=== PATIENT | female | born 1940 | race African-American/Black ===

== ENCOUNTER 2019-08-22 12:16 | Inpatient (IN) | payer OTHER ==
[~2019-08-22] VITALS: Ht 167.6 cm; Wt 74.8 kg
[2019-08-22] MEDS ORDERED: SODIUM CHLORIDE 0.9% 1,000 ML IV ONE (12:46)
[2019-08-22] MEDS ORDERED: LORAZEPAM 2MG/ML CPJ IV ONE (13:00)
[2019-08-22 13:24] LABS: BASOPHILS % 0.9 % (0.0-2.0); EOSINOPHILS % 1.6 % (0.0-5.0); HEMATOCRIT. 46.2 % (36.0-48.0); HEMOGLOBIN. 15.1 g/dL (12.0-16.0); LYMPHOCYTES % 14.9 % (20.0-50.0); MEAN CORPUSCULAR HEMOGLOBIN 28.5 pg (28.0-32.0); MEAN PLATELET VOLUME 10.4 fl (7.4-10.4); MONOCYTES % 12.4 % (2.0-8.0); NEUTROPHILS % 70.2 % (40.0-76.0); PLATELET 120 x1000/uL (130-400); RED BLOOD CELL COUNT 5.31 mill/uL (4.2-5.4); RED CELL DISTRIBUTION WIDTH 15.1 % (11.6-14.6)
[2019-08-22 13:31] LABS: CHLORIDE 100 mEq/L (98-107)
[2019-08-22 13:32] LABS: CLARITY URINE CLEAR (CLEAR); COLOR URINE YELLOW (YELLOW); KETONES URINE 4+ (NEGATIVE); LEUKOCYTE ESTERASE URINE NEGATIVE (NEGATIVE); NITRITE URINE NEGATIVE (NEGATIVE); OCCULT BLOOD URINE 1+ (NEGATIVE); PROTEIN URINE NEGATIVE (NEGATIVE); UROBILINOGEN URINE 0.2 E.U./dL (0.2-1.0)
[2019-08-22 13:34] LABS: INR 0.9; PARTIAL THROMBOPLASTIN TIME 23.6 sec (23.4-31.0); PROTHROMBIN TIME 10.1 sec (9.6-11.0)
[2019-08-22 13:40] LABS: BETA HYDROXYBUTYRATE 7.1 mMol/L (0.0-0.3)
[2019-08-22] MEDS ORDERED: SODIUM CHLORIDE 0.9% 1,000 ML IV STA (15:05)
[2019-08-22] MEDS ORDERED: KCL 20MEQ/100ML PREMIX 100 ML IV ONE (15:15)
[2019-08-22] MEDS ORDERED: INSULIN REGULAR (DRIP) 100 UNITS in SODIUM CHLORIDE 0.9% 100 ML IV ONE (16:00)
[2019-08-22 16:26] LABS: CHLORIDE 111 mEq/L (98-107)
[2019-08-22 16:30] LABS: BG BASE EXCESS -15.3 mmol/L (-2.0-2.0); BG CARBOXYHEMOGLOBIN 0.4 % (0.5-1.5); BG DEOXYHEMOGLOBIN 3.9 % (0.0-5.0); BG FRACTION INSPIRED OXYGEN 21; BG HCO3 ACT 9.5 mmol/L (22.0-26.0); BG METHEMOGLOBIN 0.2 % (0.0-1.5); BG OXYGEN SATURATION 96.1 % (92.0-98.5); BG OXYHEMOGLOBIN 95.5 % (94.0-97.0); BG PH 7.272 (7.350-7.450); BG PO2 90.9 mmHg (75.0-100.0); BG SAMPLE SITE RIGHT RADIAL; BG TOTAL HEMOGLOBIN 13.2 g/dL (12.0-18.0); BG VENT MODE ROOM AIR
[2019-08-22 16:32] LABS: PHOSPHORUS 2.9 mg/dL (2.5-4.9)
[2019-08-22] MEDS ORDERED: DEXT 5%/0.9% NACL KCL 20MEQ/L 1,000 ML IV SCH (18:15)
[2019-08-22] MEDS ORDERED: ONDANSETRON HCL 4MG/2ML INJ IV PRN (18:15)
[2019-08-22] MEDS ORDERED: IPRATROPIUM/ALBUTEROL 0.5-3(2.5)MG/3ML NEB HHN PRN (18:15)
[2019-08-22 20:33] LABS: CHLORIDE 119 mEq/L (98-107)
[2019-08-22 20:37] LABS: PHOSPHORUS 1.8 mg/dL (2.5-4.9)
[2019-08-22] MEDS ORDERED: SODIUM CHLORIDE 0.9% 1,000 ML IV SCH (22:30)
[2019-08-22 22:36] VITALS: BP 153/90
[2019-08-22 22:52] VITALS: BP 153/90
[2019-08-22 23:00] VITALS: BP 146/72
[2019-08-22] MEDS ORDERED: INSULIN REGULAR (DRIP) 100 UNITS in SODIUM CHLORIDE 0.9% 99 ML IV SCH (23:09)
[2019-08-22] MEDS ORDERED: DEXTROSE 50% WATER 50ML SYRINGE IV PRN ×2 (23:15)
[2019-08-22] MEDS: DEXT 5%/0.45% NACL 1000ML 1,000 ML IV SCH (23:15)
[2019-08-22 23:30] VITALS: BP 141/76
[2019-08-22] MEDS: BLOOD SUGAR DIAGNOSTIC STRIP TEST SCH (23:40)
[2019-08-23] VITALS (35 sets, daily range): BP systolic 94–159; BP diastolic 52–90
[2019-08-23] MEDS: BLOOD SUGAR DIAGNOSTIC STRIP TEST SCH ×18 (01:07→17:53)
[2019-08-23 01:18] LABS: CHLORIDE 120 mEq/L (98-107)
[2019-08-23] MEDS: DEXT 5%/0.45% NACL 1000ML 1,000 ML IV SCH ×3 (04:58→21:19)
[2019-08-23 05:47] LABS: HEMATOCRIT. 38.4 % (36.0-48.0); HEMOGLOBIN. 12.6 g/dL (12.0-16.0); MEAN CORPUSCULAR HEMOGLOBIN 28.1 pg (28.0-32.0); MEAN CORPUSCULAR VOLUME 85.8 fL (81.0-99.0); MEAN PLATELET VOLUME 9.3 fl (7.4-10.4); PLATELET 93 x1000/uL (130-400); RED BLOOD CELL COUNT 4.47 mill/uL (4.2-5.4); RED CELL DISTRIBUTION WIDTH 14.7 % (11.6-14.6)
[2019-08-23 05:56] LABS: CHLORIDE 118 mEq/L (98-107)
[2019-08-23 06:05] LABS: HDL CHOLESTEROL 78 mg/dL (40-59); LDL CHOLESTEROL 79 mg/dL (5-100)
[2019-08-23 08:14] LABS: PLATELET ESTIMATE SLIGHTLY DECREASED
[2019-08-23] MEDS ORDERED: POTASSIUM CHLORIDE INJ 40 MEQ in DEXT 5% WATER 250 ML IV NR (12:00)
[2019-08-23] MEDS: ENOXAPARIN 80MG/0.8ML SYR SUBCUT SCH ×2 (12:27→23:57)
[2019-08-23 17:17] LABS: CHLORIDE 115 mEq/L (98-107)
[2019-08-23 17:19] LABS: EOSINOPHILS % 7.5 % (0.0-5.0); HEMATOCRIT. 37.9 % (36.0-48.0); HEMOGLOBIN. 12.6 g/dL (12.0-16.0); MEAN CORPUSCULAR HEMOGLOBIN 28.5 pg (28.0-32.0); MEAN CORPUSCULAR VOLUME 85.5 fL (81.0-99.0); MEAN PLATELET VOLUME 8.9 fl (7.4-10.4); MONOCYTES % 13.8 % (2.0-8.0); NEUTROPHILS % 54.7 % (40.0-76.0); PLATELET 90 x1000/uL (130-400); RED BLOOD CELL COUNT 4.43 mill/uL (4.2-5.4); RED CELL DISTRIBUTION WIDTH 14.6 % (11.6-14.6)
[2019-08-23] MEDS ORDERED: INSULIN LISPRO 100 UNITS/ML SUBCUT SCH (17:50)
[2019-08-23] MEDS: INSULIN LISPRO (LOW DOSE) 100 UNITS/ML SUBCUT SCH (17:59)
[2019-08-23] MEDS: INSULIN LISPRO 100 UNITS/ML SUBCUT SCH (18:00)
[2019-08-23 19:23] LABS: PHOSPHORUS 1.2 mg/dL (2.5-4.9)
[2019-08-23 19:28] LABS: T4 FREE 1.08 ng/dL (0.76-1.46)
[2019-08-23] MEDS ORDERED: INSULIN GLARGINE UD 100 UNITS/ML SYR SUBCUT SCH (20:00)
[2019-08-23] MEDS ORDERED: POTASSIUM PHOS,M-BASIC-D-BASIC 20 MMOL in DEXT 5% WATER 243.3333 ML IV NR (22:00)
[2019-08-23] MEDS ORDERED: MAGNESIUM 2 G PREMIX 50 ML IV NR (22:00)
[2019-08-24] VITALS (22 sets, daily range): BP systolic 91–154; BP diastolic 57–93
[2019-08-24 00:55] LABS: CHLORIDE 114 mEq/L (98-107)
[2019-08-24 05:25] LABS: CHLORIDE 113 mEq/L (98-107)
[2019-08-24 05:30] LABS: HEMATOCRIT. 40.1 % (36.0-48.0); HEMOGLOBIN. 13.1 g/dL (12.0-16.0); MEAN CORPUSCULAR HEMOGLOBIN 28.1 pg (28.0-32.0); MEAN PLATELET VOLUME 9.1 fl (7.4-10.4); PLATELET 87 x1000/uL (130-400); RED BLOOD CELL COUNT 4.66 mill/uL (4.2-5.4); RED CELL DISTRIBUTION WIDTH 14.8 % (11.6-14.6)
[2019-08-24 05:32] LABS: PHOSPHORUS 2.9 mg/dL (2.5-4.9)
[2019-08-24] MEDS: BLOOD SUGAR DIAGNOSTIC STRIP TEST SCH ×2 (07:50→12:06)
[2019-08-24] MEDS: ATENOLOL 50 MG TABLET PO SCH (09:01)
[2019-08-24] MEDS: AMLODIPINE 10MG TABLET PO SCH (09:01)
[2019-08-24] MEDS: INSULIN LISPRO (LOW DOSE) 100 UNITS/ML SUBCUT SCH ×2 (09:02→12:05)
[2019-08-24] MEDS: INSULIN LISPRO 100 UNITS/ML SUBCUT SCH ×2 (09:02→12:06)
[2019-08-24 10:37] LABS: CHLORIDE 110 mEq/L (98-107)
[2019-08-24] MEDS: SODIUM CHL 0.45% + KCL 20MEQ/L 1,000 ML IV SCH ×2 (12:01→22:22)
[2019-08-24] MEDS: ENOXAPARIN 80MG/0.8ML SYR SUBCUT SCH ×2 (12:03→23:03)
[2019-08-24 13:32] LABS: PLATELET ESTIMATE DECREASED
[2019-08-24] MEDS: INSULIN GLARGINE UD 100 UNITS/ML SYR SUBCUT SCH (22:19)
[2019-08-25] VITALS (8 sets, daily range): BP systolic 115–169; BP diastolic 61–86
[2019-08-25] MEDS: INSULIN LISPRO (LOW DOSE) 100 UNITS/ML SUBCUT SCH ×3 (06:22→17:39)
[2019-08-25] MEDS: BLOOD SUGAR DIAGNOSTIC STRIP TEST SCH ×3 (06:22→17:26)
[2019-08-25] MEDS: INSULIN LISPRO 100 UNITS/ML SUBCUT SCH ×3 (06:54→17:40)
[2019-08-25 07:22] LABS: HEMATOCRIT. 40.8 % (36.0-48.0); HEMOGLOBIN. 13.4 g/dL (12.0-16.0); MEAN CORPUSCULAR HEMOGLOBIN 28.3 pg (28.0-32.0); MEAN CORPUSCULAR VOLUME 86.3 fL (81.0-99.0); MEAN PLATELET VOLUME 9.6 fl (7.4-10.4); PLATELET 102 x1000/uL (130-400); RED BLOOD CELL COUNT 4.72 mill/uL (4.2-5.4); RED CELL DISTRIBUTION WIDTH 14.6 % (11.6-14.6)
[2019-08-25 07:28] LABS: CHLORIDE 113 mEq/L (98-107)
[2019-08-25 07:44] LABS: PHOSPHORUS 2.4 mg/dL (2.5-4.9)
[2019-08-25] MEDS: SODIUM CHL 0.45% + KCL 20MEQ/L 1,000 ML IV SCH ×2 (08:56→17:40)
[2019-08-25] MEDS: AMLODIPINE 10MG TABLET PO SCH (08:56)
[2019-08-25] MEDS: ATENOLOL 50 MG TABLET PO SCH (09:50)
[2019-08-25 11:31] LABS: PLATELET ESTIMATE SLIGHTLY DECREASED
[2019-08-25] MEDS ORDERED: LANTUSUD SUBCUT (12:09)
[2019-08-25] MEDS ORDERED: AMLO10TA80 PO (12:09)
[2019-08-25] MEDS ORDERED: ATEN50TA PO (12:09)
[2019-08-25] MEDS ORDERED: APIX5TAB MT (12:09)
[2019-08-25] MEDS ORDERED: INSLIS SUBCUT (12:10)
[2019-08-25] MEDS ORDERED: POTASSIUM PHOS,M-BASIC-D-BASIC 20 MMOL in DEXT 5% WATER 243.3333 ML IV SCH (14:00)
[2019-08-25] MEDS: APIXABAN 5 MG TABLET PO SCH ×2 (14:36→21:41)
[2019-08-25] MEDS: INSULIN GLARGINE UD 100 UNITS/ML SYR SUBCUT SCH (21:59)
[2019-08-26] VITALS: BP 103/70
[2019-08-26 04:00] VITALS: BP 107/63
[2019-08-26] MEDS: BLOOD SUGAR DIAGNOSTIC STRIP TEST SCH ×2 (06:27→11:55)
[2019-08-26] MEDS: INSULIN LISPRO 100 UNITS/ML SUBCUT SCH ×2 (06:29→12:25)
[2019-08-26] MEDS: INSULIN LISPRO (LOW DOSE) 100 UNITS/ML SUBCUT SCH ×2 (06:30→12:26)
[2019-08-26 08:00] VITALS: BP 120/72
[2019-08-26] MEDS: APIXABAN 5 MG TABLET PO SCH (09:35)
[2019-08-26] MEDS: AMLODIPINE 10MG TABLET PO SCH (09:35)
[2019-08-26] MEDS: ATENOLOL 50 MG TABLET PO SCH (09:36)
[2019-08-26] MEDS: SODIUM CHL 0.45% + KCL 20MEQ/L 1,000 ML IV SCH (09:36)
[2019-08-26 12:00] VITALS: BP 124/70
[2019-08-26 13:19] VITALS: BP 124/70
[2019-09-01] MEDS ORDERED: APIXABAN 5 MG TABLET PO SCH (09:00)
== END 2019-08-26 15:50 | disposition home health service (06) | DRG 638 ==
LOC: ER 12:16 → CVICU 15:35 → ENRESERV 21:38 → 5WST 08-24 16:57
PROVIDERS: ADMIT Internal Medicine; ATTEND Internal Medicine
DX: E11.10 Type 2 diabetes mellitus with ketoacidosis without coma (principal); I82.411 Acute embolism and thrombosis of right femoral vein; I82.431 Acute embolism and thrombosis of right popliteal vein; E83.39 Other disorders of phosphorus metabolism; E83.42 Hypomagnesemia; M21.612 Bunion of left foot; M21.611 Bunion of right foot; E87.6 Hypokalemia; D69.6 Thrombocytopenia, unspecified; R60.0 Localized edema; E88.09 Other disorders of plasma-protein metabolism, not elsewhere classified; M20.5X2 Other deformities of toe(s) (acquired), left foot; M20.5X1 Other deformities of toe(s) (acquired), right foot; I10 Essential (primary) hypertension; Z80.0 Family history of malignant neoplasm of digestive organs; Z83.3 Family history of diabetes mellitus
CPT/HCPCS: 36415; 36600; 71045; 80048; 80053; 80061; 81003; 82010; 82330; 82375; 82533; 82805; 82962; 83036; 83735; 83880; 84100; 84134; 84439; 84443; 84484; 84681; 85025; 93005; 93970; 93971; 97161; 99291; J1650; J1815; J2060; J3475; J3480; J3490; J7030; J7050; J7060